=== PATIENT | female | born 1945 | race Caucasian/White ===

== ENCOUNTER → 2018-06-18 | Emergency (ER) | payer BC ==
[2018-06-18 08:16] LABS: ADD MAN DIFF? NO
[2018-06-18 08:17] LABS: WHITE BLOOD COUNT 7.9 10^3/ul (4.8-10.8)
[2018-06-18 08:17] LABS: BASOPHIL # 0.1 10^3/ul (0.0-0.1); BASOPHILS % 0.8 % (0.0-2.0); EOSINOPHILS # 0.2 10^3/ul (0.0-0.5); HEMATOCRIT 38.3 % (37.0-47.0); LYMPHOCYTES # 2.3 10^3/ul (0.8-2.9); MEAN CORPUSCULAR HEMOGLOBIN 30.2 pg (29.0-33.0); MEAN CORPUSCULAR HGB CONC 33.9 g/dl (32.0-37.0); MEAN CORPUSCULAR VOLUME 88.9 fl (82.0-101.0); MEAN PLATELET VOLUME 9.4 fl (7.4-10.4); MONOCYTE # 0.6 10^3/ul (0.3-0.9); MONOCYTES % 7.3 % (0.0-11.0); NEUTROPHIL # 4.8 10^3/ul (1.6-7.5); NEUTROPHILS % 60.5 % (39.0-77.0); PLATELET COUNT 286 10^3/UL (140-415); RED BLOOD COUNT 4.31 10^6/ul (4.20-5.40); RED CELL DISTRIBUTION WIDTH 12.7 % (11.5-14.5)
[2018-06-18] MEDS: ONDANSETRON 4 MG INJ IV (08:17)
[2018-06-18] MEDS: LORAZEPAM 0.5 MG TAB PO (08:17)
[2018-06-18] MEDS: SOD CHLORIDE 0.9% 500 ML IV (08:19)
[2018-06-18 08:36] LABS: ANION GAP 12 (5-13); BLOOD UREA NITROGEN 16 mg/dl (7-20); CALCIUM 9.6 mg/dl (8.4-10.2); CARBON DIOXIDE 22 mmol/L (21-31); CHLORIDE 107 mmol/L (97-110); CREATININE 0.58 mg/dl (0.44-1.00); GLUCOSE 138 mg/dl (70-220); POTASSIUM 3.7 mmol/L (3.5-5.1); SODIUM 141 mmol/L (135-144)
[2018-06-18 08:48] LABS: TROPONIN-I < 0.012 ng/ml (0.000-0.120)
== END | disposition home or self-care (01) ==
LOC: E/R 08:01
DX: R42 Dizziness and giddiness (principal); R11.0 Nausea
CPT/HCPCS: 36415; 71045; 80048; 84484; 85025; 93005; 96374; 99285-25